=== PATIENT | female | born 1970 | race Caucasian/White ===

== ENCOUNTER → 2024-06-16 17:51 | Outpatient (REF) | payer OTHER, SELFPAY | LOC: WDC 17:51 | PROVIDERS: ATTENDING PHYSICIAN Internal Medicine | DX: Z12.31 Encounter for screening mammogram for malignant neoplasm of breast (principal) | CPT/HCPCS: 77063; 77067 ==

== ENCOUNTER → 2024-10-25 09:05 | Outpatient (REF) | payer OTHER, SELFPAY | LOC: RAD 09:05 | PROVIDERS: ATTENDING PHYSICIAN Internal Medicine | DX: D68.51 Activated protein C resistance (principal) | CPT/HCPCS: 93970 ==